=== PATIENT | male | born 1985 | race Caucasian/White ===

== ENCOUNTER 2019-03-20 16:24 | Outpatient (CLI) | payer OTHER ==
--- NOTE | 2019-03-21 11:14 | Ultrasound Report ---
Reason: HYPERLIPIDEMIA Procedure Date: 03/20/2019 Accession Number: [id number] / [id number] Procedure: US - Carotid Doppler Complete CPT Code: Final Report FULL RESULT: EXAM: BILATERAL CAROTID AND VERTEBRAL ARTERY DUPLEX DOPPLER ULTRASOUND: EXAM DATE: 03/20/2019 05:22 PM CLINICAL HISTORY: Hyperlipidemia. COMPARISON: None. TECHNIQUE: Grayscale imaging, color Doppler, and duplex spectral Doppler were used to evaluate the carotid and vertebral arteries bilaterally. Static images were obtained. FINDINGS: Minimal bilateral soft and calcified plaque formation. Normal antegrade flow is present in bilateral vertebral arteries. VELOCITIES (cm/sec): Right CCA mid: PSV 94.4 cm/sec CCA dist: PSV 89 cm/sec ICA prox: PSV 78 cm/sec, EDV 37 cm/sec ICA mid: PSV 72 cm/sec, EDV 39 cm/sec ICA dist: PSV 83 cm/sec, EDV 35 cm/sec ECA: PSV 102 cm/sec Vert: PSV 42 cm/sec ICA/CCA: 0.9 Left CCA mid: PSV 91 cm/sec CCA dist: PSV 79 cm/sec ICA prox: PSV 87 cm/sec, EDV 32 cm/sec ICA mid: PSV 66.3 cm/sec, EDV 30 cm/sec ICA dist: PSV 56.4 cm/sec, EDV 32 cm/sec ECA: PSV 104 cm/sec Vert: PSV 62 cm/sec ICA/CCA: 1.0 ICA diameter stenosis: Right: <50% by velocity and <70% by NASCET criteria. Left: <50% by velocity and <70% by NASCET criteria. IMPRESSION: 1. Minimal bilateral soft and calcified plaque formation. 2. In the right carotid artery there are no elevated carotid artery velocities to suggest hemodynamically significant stenosis. 3. In the left carotid artery there are no elevated carotid artery velocities to suggest hemodynamically significant stenosis. 4. Normal antegrade flow is present in bilateral vertebral arteries. General Recommendations: Stenosis =50% ICA - Follow-up ultrasound 6-12 months Stenosis <50% ICA - High Risk Patient with plaque - Follow-up ultrasound 1-2 years Normal Study but High Risk Patient - Follow-up ultrasound 3-5 years Management recommendations and diagnostic criteria are based on current IAC endorsed standards in Carotid Artery Stenosis: Grayscale and Doppler Ultrasound Diagnosis. Validated velocity measurements with angiographic measurements and velocity criteria are extrapolated from diameter data as defined by the Society of Radiologists in Ultrasound Consensus Conference Radiology 2003; 229;340-346. RADIA
== END 2019-03-20 16:25 | disposition home or self-care (01) ==
LOC: DI 16:24
PROVIDERS: ATTEND Nurse Practitioner Family
DX: E78.5 Hyperlipidemia, unspecified (principal)
CPT/HCPCS: 93880

== ENCOUNTER 2023-03-17 14:29 | Outpatient (CLI) | payer OTHER ==
--- NOTE | 2023-03-17 15:49 | Sleep Patient Instructions ---
Sleep Center Visit Summary - Patient Visit Information Reason for Visit: Initial consult for evaluation of sleep disordered breathing and other sleep issues. - Patient Instructions Instructions Attached: Sleep Study Home Monitor Additional Instructions: You will be completing a sleep study, either an in-lab polysomnography (PSG) or home sleep study (HST). You will follow-up in the sleep care office after the sleep study is completed to hear the results and talk about therapy, if needed. You will be called by our office staff to schedule this appointment, but you may contact us with any questions. - Clinic Information Contact: [facility] [address] [place] [address] [email or web address] T: [phone]
--- NOTE | 2023-03-17 15:50 | SLEEP CARE CONSULTATION ---
Information from patient questionnaire entered by Teofilo Ríos. I have reviewed and concur with the information entered by Teofilo Ríos. This document represents the service I personally performed and the decisions made by me, Kiya Henderson ARNP. History of Present Illness Service Date and Time: 03/17/2023 1429 Reason for Visit: New patient Chief Complaint: reports: Insomnia, Snoring, Excessive daytime sleepiness, Fatigue, Frequent awakenings at night Date of Onset: 4.5YRS Usual bedtime: 2000 Time it takes to fall asleep: 1-2HRS Snores at night: Yes Observed to quit breathing while asleep: Yes Sleeps alone due to snoring: No Number of times waking at night: MULTIPLE, USUALLY DO TO NECK PAIN Reasons for waking at night: reports: Pain, Bathroom, Other (UNKNOWN). denies: Choking, Gasping for air Toss, Turn, or Twitch while sleeping: Yes Recalls having dreams: No Usually gets out of bed at: 0500 Feels refreshed in the morning: No Morning headache: Yes (2 times a week; hx of migraines, takes rizatriptan) Sleepy or fatigued during the day: Yes Ever fallen asleep while driving: No Takes day naps: No Prior sleep studies: Yes Additional HPI information: I had the pleasure of seeing CEHKO YUNG today regarding the possibility of him having a sleep disorder. His current complaints are excessive daytime sleepiness, fatigue, frequent night awakenings, insomnia and snoring. He says his tells him that he snores loudly and gag in his sleep. He has a hard time going to sleep and feels tired all day. He does not wake up feeling rested in the morning. He has a lot of neck pain that disturbs his sleep. He feels like he is up for hours trying to sleep most nights. He says he can't take naps and does not have a problem with drowsy driving. He says he has had a sleep study in the past when he was on amitriptyline at that time. The study was negative. He says his watch will wake him up a couple times a week telling him his heart rate was low. He thinks it might be positional because he has been trying different positions to sleep with some improvement of the heart rate alarms. - Parasomnia Symptoms Ever been unable to move upon waking from sleep: No Walks in sleep: No Talks in sleep: No Ever acted out dreams in sleep: No Ever felt weak in the knees when startled or emotional: No Bothered by creepy, crawly, restless sensations in legs: Yes (at night, increased after exercise; 2 times a week) Problems with memory or concentration: Yes (both; more concentration) Subjective Initial [place] Sleepiness Scale score: 0 (02/28/23) Past Medical History Past Medical History: reports: Depression, GERD, Other (LOW BACK PAIN, MIGRAINES ) Social History The patient's occupation is a ACTIVE DUTY. Patient is and lives in [place]. Have you smoked in the past 12 months: No Alcohol use: Yes Alcohol amount and frequency: 1-2 1 PER WEEK Caffeine use: Yes Caffeine amount and frequency: 1-2 CUPS DAILY Family History Family history of sleep disordered breathing: No Allergies and Home Medications Known drug allergies: No Drug allergies reviewed: Yes Home medication list reviewed: Yes (-zole for GERD, not sure of name) Allergy and home medication list: Home Medications Medication Instructions Recorded Confirmed Last Taken Type Excedrin Migraine See Rx Instructions .ROUTE .COMPLEX 03/17/23 Unknown History Ibuprofen Motrin See Rx Instructions .ROUTE .COMPLEX 03/17/23 03/17/23 Unknown History Rizatriptan Benzoate Rizatriptan See Rx Instructions .ROUTE .COMPLEX 03/17/23 03/17/23 Unknown History Review of Systems Weight gain over past 5 years: 20 Cardiovascular: reports: high blood pressure (BORDERLINE) Gastrointestinal: reports: heartburn, difficulty swallowing Neurological: reports: headaches Psychiatric: reports: depression Ear/Nose/Throat: reports: sinus problems, injury to nose, wisdom teeth removed. denies: tonsillectomy Immunologic: reports: sneezing Physical Exam Vital signs obtained and entered by: TEOFILO Meade MA Blood Pressure: 120/76 (LEFT ARM) Cuff size: regular Heart Rate: 72 O2 Saturation: 98 Height: 5 ft 7.5 in Weight: 172 lb 3.2 oz Body Mass Index: 26.5 BMI Classification: Overweight Neck circumference: 16 Mouth and throat: narrow oropharynx Soft palate: long Hard palate: normal Uvula: normal Uvula visualization: 25% Mallampati Class III Tongue: enlarged in size with teeth [place] on lateral edges Tonsils: 2+ Neck: normal w/o lymphadenopathy or thyromegaly Heart: regular rate and rhythm Lungs: clear bilaterally Impression and Plan 1. Suspected Obstructive Sleep Apnea-Hypopnea Syndrome, as suggested by a history of loud and irregular snoring, observed cessation of breath while asleep, morning headache, frequent awakening during the night, unrefreshed sleep, cognitive impairment, and excessive daytime sleepiness. Narrow oropharynx and obesity are common predisposing factors for obstructive sleep apnea-hypopnea syndrome. I recommend proceeding to polysomnography to confirm the diagnosis and to assess severity. If the patient has significant sleep disordered breathing, a manual CPAP titration study will also be performed to find the optimal treatment pressure. I informed the patient of what the sleep studies involve and after some discussion, obtained agreement to proceed. The pathophysiology of obstructive sleep apnea-hypopnea syndrome was discussed with the patient and health risks of cardiovascular and cerebrovascular disease if not treated. Risks of drowsy driving discussed in detail and patient advised to avoid long distance driving and to gum puller at the first sign of drowsiness. Patient agreed to plan. * Schedule polysomnography +- manual CPAP titration study and return in 1-2 weeks after the study to discuss result and initiate therapy. * Avoid long distance driving or driving when feeling sleepy. * Avoid alcohol, sedative and muscle relaxant around bedtime. * Attempt to lose weight. * Review instructions provided by trained office staff on how to prepare for the sleep study. * Return for follow-up after sleep study completed. Counseling Topics: Weight loss health impact Visit Type: In Office Time Spent with Patient (minutes): 30 Provider Statement: I spent 100% of the Face to Face Visit with the patient with greater than 50% spent counseling the patient and coordination of care.
[2023-03-17 15:55] VITALS: BP 120/76; O2SAT 98
== END 2023-03-17 14:30 | disposition home or self-care (01) ==
LOC: SC 14:29
PROVIDERS: ATTEND Nurse Practitioner Family
DX: R06.83 Snoring (principal); R06.81 Apnea, not elsewhere classified; R41.9 Unspecified symptoms and signs involving cognitive functions and awareness; G47.8 Other sleep disorders; R41.89 Other symptoms and signs involving cognitive functions and awareness; G47.10 Hypersomnia, unspecified; E66.3 Overweight; Z68.26 Body mass index [BMI] 26.0-26.9, adult
CPT/HCPCS: 99203; 99212

== ENCOUNTER 2023-04-21 08:43 | Outpatient (CLI) | payer OTHER | END 2023-04-21 08:44 | disposition home or self-care (01) | LOC: SC 08:43 | PROVIDERS: ATTEND Nurse Practitioner Family | DX: G47.33 Obstructive sleep apnea (adult) (pediatric) (principal); R09.02 Hypoxemia | CPT/HCPCS: 95806 ==

== ENCOUNTER 2023-04-28 08:59 | Outpatient (CLI) | payer OTHER ==
--- NOTE | 2023-04-28 09:34 | Sleep Patient Instructions ---
Sleep Center Visit Summary - Patient Visit Information Reason for Visit: Sleep study follow-up - Patient Instructions Instructions Attached: CPAP Additional Instructions: You are being started on CPAP therapy with pressure setting at 4-15 cmH2O. You will need to call the sleep care office to set up your follow up once you have your APAP machine and we will schedule a visit to check compliance and response to therapy at that time. You may call the office with any concerns about pressure feeling too low or too much for adjustment, if needed. You should contact DME supplier for any questions or concerns about mask or equipment. Please call office to schedule a follow up appointment in the sleep care office one month after obtaining new device. - Clinic Information Contact: [facility] [address] [place] [address] [email or web address] T: [phone]
--- NOTE | 2023-04-28 09:38 | SLEEP CARE CONSULTATION ---
Information from patient questionnaire entered by Kamila Ríos. I have reviewed and concur with the information entered by Kamila Ríos. This document represents the service I personally performed and the decisions made by me, Kiya Henderson ARNP. History of Present Illness Service Date and Time: 04/28/2023 0859 Initial [place] Sleepiness Scale score: 0 (02/28/23) Current [place] Sleepiness Scale score: 0 Additional HPI information: CHEKO YUNG returns for follow up and results of the recently performed home sleep study. The sleep study showed mild obstructive sleep apnea with an average AHI of 7.7 and destiny oxygen saturation of 93%. I explained the pathophysiology behind obstructive sleep apnea. We then spent quite a bit of time discussing different treatment options. For mild obstructive sleep apnea, surgery and oral appliance are alternatives to nasal CPAP therapy but in moderate or severe cases, nasal CPAP is the most effective and reliable treatment. Because apnea is primarily in supine position, then positional management therapy could be effective. Methods discussed such as positioning with pillows, using a T-shirt with tennis balls in the back or commercial products that have a pillow format on back to prevent supine sleep. I reviewed the impact of weight changes on sleep apnea and strongly recommended losing weight. After some discussion, the patient opted to go with the nasal CPAP therapy. Nasal autoCPAP set at 4-15 cmH20 will be ordered with rationale explained. A manual titration study will be ordered if unable to find optimal pressure with office adjustments. I explained how CPAP machine works and what to expect when using the machine. Using CPAP every night in order to get used to it was emphasized. Patient advised to put CPAP mask on before getting into bed so as not to fall asleep without CPAP. To assist acclimation to CPAP use, it could also be used for a short time during day while reading or watching TV. The patient was instructed to call the CPAP supplier to discuss any mechanical problem that may occur. If the mask given is uncomfortable or is difficult to keep on through the night even with adjustment, contact the CPAP supplier as many will replace with another mask style if notified before 30 days. If snoring or perceives is not getting enough air or too much air from the machine, notify this office. Patient counseled not drink alcohol less than 4 hours be fore bedtime as it can increase snoring and apnea. Patient was cautioned about risks of drowsy driving until sleepiness symptoms resolve. Patient denies drowsy driving. Sleep Study - Results Type of Sleep Study: Home sleep study (COMPLETED 04/20/23) Prior sleep studies: Yes Polysomnography/Home Sleep Study results: Physician Impression: The quality of the study is good. The length of the study is adequate (> 240 minutes). Please also see the tabulated and graphic data. 1. Obstructive Sleep Apnea-Hypopnea (ICD-10 G47.33), mild, with an AHI of 7.7/hr and dsetiny SaO2 of 78%. During the study, the patient had 7 apneas (7 obstructive, 0 central, 0 mixed) and 54 hypopneas. The longest episode lasted 117.5 seconds. The patient slept mostly supine (supine AHI was 8.7 and nonsupine, 2.42). 2. Hypoxemia (ICD-10 R09.02), moderate, with the lowest oxygen saturation of 78 % and 13.3 minutes with SaO2 under 90%. Baseline oxygen saturation was normal (Average oxygen saturation was 93%). Allergies and Home Medications Known drug allergies: No Drug allergies reviewed: Yes Home medication list reviewed: Yes (Duloxetine 20 mg daily for low back pain) Allergy and home medication list: Allergies No Known Drug Allergies Allergy (Verified 04/26/23 08:32) Review of Systems Review of systems same as previous: Yes Physical Exam Vital signs obtained and entered by: ANA ROMEO Blood Pressure: 138/91 Cuff size: regular (right arm) Heart Rate: 73 O2 Saturation: 97 Height: 5 ft 7.5 in Weight: 171 lb Body Mass Index: 26.4 BMI Classification: Overweight Impression and Plan 1. Obstructive Sleep Apnea-Hypopnea Syndrome, mild, with lowest oxygen saturation of 78%. Obviously this is the cause of the patients symptoms of unrefreshed sleep, and excessive daytime sleepiness. Positive pressure therapy could benefit depression, gastric reflux and migraines. As mentioned above, the patient will be started on nasal autoCPAP therapy with pressure set at 4-15 cmH2 O. A manual titration study will be completed if unable to find optimal treatment pressure with office adjustments. Compliance guidelines also reviewed. A copy of compliance guidelines will be given for reference at check out. Because the apnea is more severe supine, I instructed to avoid sleeping supine using pillow positioning until able to start CPAP use. 2. Hypoxemia, moderate, with a destiny oxygen saturation of 78% and 13.3 minutes spent under 90%. The baseline oxygen saturation was normal with an average oxygen saturation of 93%. 3. [Obesity][Overweight], unspecified. Currently patients BMI is [26.4]. Obesity increases the risk of apnea, CPAP pressure requirements and overall health risks especially cardiovascular and diabetes. Thus patient is advised to[ continue to try to] lose weight. * Nasal auto CPAP therapy, pressure at 4-15 cm H2O. * Attempt to lose weight. * Avoid alcohol consumption near bedtime. * Avoid supine sleep until using CPAP. * The patient is again cautioned about driving until sleepiness completely resolves. * Return one month after CPAP obtained. I will assess response to therapy and compliance at that time. Counseling Topics: Weight loss health impact Prescriptions: Auto CPAP Follow up with Sleep Care in: other (compliance visit) Visit Type: In Office Time Spent with Patient (minutes): 23 Provider Statement: I spent 100% of the Face to Face Visit with the patient with greater than 50% spent counseling the patient and coordination of care.
[2023-04-28 09:45] VITALS: BP 138/91; O2SAT 97
== END 2023-04-28 09:00 | disposition home or self-care (01) ==
LOC: SC 08:59
PROVIDERS: ATTEND Nurse Practitioner Family
DX: G47.33 Obstructive sleep apnea (adult) (pediatric) (principal); R09.02 Hypoxemia; E66.3 Overweight; Z68.26 Body mass index [BMI] 26.0-26.9, adult
CPT/HCPCS: 99212; 99213

== ENCOUNTER 2023-08-11 12:56 | Outpatient (CLI) | payer OTHER ==
--- NOTE | 2023-08-11 13:28 | Sleep Patient Instructions ---
Sleep Center Visit Summary - Patient Visit Information Reason for Visit: First compliance follow-up - Patient Instructions Additional Instructions: You were here for follow up of CPAP therapy. You will be continued on CPAP therapy with pressure at 5-8 cmH2O. Please let us know if the pressure change is uncomfortable and we can make further adjustments of the pressure. You should follow up with sleep care in 1-2 months. You may contact us sooner for any questions or concerns. - Clinic Information Contact: [facility] [address] [place] [address] [email or web address] T: [phone]
[2023-08-11 13:32] VITALS: BP 137/86; O2SAT 97
--- NOTE | 2023-08-11 13:32 | SLEEP CARE CONSULTATION ---
Information from patient questionnaire entered by Teofilo Ríos. I have reviewed and concur with the information entered by Teofilo Ríos. This document represents the service I personally performed and the decisions made by , Kiya Henderson ARNP. History of Present Illness Service Date and Time: 08/11/2023 125 Previous diagnosis: Mild, Obstructive Sleep Apnea-Hypopnea Syndrome AHI: 7.7 (04/20/23) Reason for follow up: first compliance Equipment type: CPAP (RESMED Airsense 11, S/U 07/05/23) Equipment obtained from: Other ([facility]; getting supplies) Mask style: Nasal pillows Backup mask available: No Last cushion change: 1 month or so Prior sleep studies: Yes Type of Sleep Study: Home sleep study (COMPLETED 04/20/23) HPI additional information: CHEKO YUNG was diagnosed to have mild, AHI 7.7, obstructive sleep apnea-hypopnea syndrome and returned today for CPAP therapy first compliance follow-up. Sleep Study - Results Type of Sleep Study: Home sleep study (COMPLETED 04/20/23) Prior sleep studies: Yes CPAP Compliance Data - Data Reviewed with Patient Average duration of nightly device use: 5 HRS 23 MINS Compliance rate %: 90 (07/05/23-08/03/23; 28/30 days used) Current pressure setting (cmH2O): 4-15 (median 5, avg 6.7, max 7.7) Average residual AHI: 0.5 Central apnea: 0.1 Obstructive apnea: 0.2 Hypopnea: 0.2 Average large leak: 0 L/min Subjective Missed days of use due to: reports: travel Patient concerns: denies: aerophagia, mask discomfort, air blowing in eyes, mask leak noise, condensation in mask/hose, nasal congestion, dry mouth, nose, throat, epistaxis Observed to snore while using device: No Current pressure setting perceived as: comfortable On therapy, patient: reports: sleeping better, awakening more refreshed, being more awake and alert during the day, more rested overall. denies: drowsiness while driving Initial [place] Sleepiness Scale score: 0 (02/28/23) Current [place] Sleepiness Scale score: 3 (08/11/23) Allergies and Home Medications Known drug allergies: No Drug allergies reviewed: Yes Home medication list reviewed: Yes (see updated EMR list) Allergy and home medication list: Allergies No Known Drug Allergies Allergy (Verified 08/09/23 10:13) Review of Systems Review of systems same as previous: Yes (NO CHANGE) Physical Exam Vital signs obtained and entered by: TEOFILO Meade MA Blood Pressure: 137/86 (LEFT ARM) Cuff size: regular Heart Rate: 82 O2 Saturation: 97 Height: 5 ft 7.5 in Weight: 172 lb 6.4 oz Body Mass Index: 26.6 BMI Classification: Overweight Impression and Plan 1. Obstructive Sleep Apnea-Hypopnea Syndrome, mild, with good treatment compliance and good apnea control. On CPAP therapy, the patient has better sleep quality and is more rested overall. He says he "loves" the CPAP. He has adjusted to wearing it and feels good when using the CPAP with sleep. He has not had any issues with the mask or pressures. The patients pressure will be changed to autoCPAP 5-8 cmH20 to reflect pressure being used. Patient advised to contact me if pressure change is uncomfortable so that it can be adjusted. Goals for apnea control discussed. Patient's apnea severity and rationale for treatment to reduce apnea, improve sleep quality and reduce cardiovascular and cerebrovascular events was reviewed. I also reviewed the benefit of consistent device use of CPAP for gastric reflux, depression, migraines. 2. Overweight, unspecified. Currently patients BMI is 26.6. Obesity increases the risk of apnea, CPAP pressure requirements and overall health risks especially cardiovascular and diabetes. Thus patient is advised to maintain a healthy weight. * Change auto CPAP pressure to 5-8 cmH2O * Notify me if snoring with mask or feeling that the pressure is too much or too little * Maintain a healthy weight * Call this office if any problems using CPAP * Return for follow up in 1-2 months, or sooner if concerns arise Adjust device pressure to (cmH2O): 5-8 Counseling Topics: Spare mask, Weight control Follow up with Sleep Care in: 1-2 months Visit Type: In Office Time Spent with Patient (minutes): 14 Provider Statement: I spent 100% of the Face to Face Visit with the patient with greater than 50% spent counseling the patient and coordination of care.
== END 2023-08-11 12:57 | disposition home or self-care (01) ==
LOC: SC 12:56
PROVIDERS: ATTEND Nurse Practitioner Family
DX: G47.33 Obstructive sleep apnea (adult) (pediatric) (principal); E66.3 Overweight; Z68.26 Body mass index [BMI] 26.0-26.9, adult
CPT/HCPCS: 99212

== ENCOUNTER 2023-09-14 10:50 | Outpatient (CLI) | payer OTHER ==
--- NOTE | 2023-09-14 11:22 | Sleep Patient Instructions ---
Sleep Center Visit Summary - Patient Visit Information Reason for Visit: 1 month follow-up after pressure change - Patient Instructions Additional Instructions: You were here for follow up of CPAP therapy. You will be continued on CPAP therapy with pressure at 5-8 cmH2O. You should follow up with sleep care in 3 months. You may contact us sooner for any questions or concerns. - Clinic Information Contact: [facility] [address] [place] [id number] [email or web address] T: [phone]
--- NOTE | 2023-09-14 11:25 | SLEEP CARE CONSULTATION ---
Information from patient questionnaire entered by Teofilo Ríos. I have reviewed and concur with the information entered by Teofilo Ríos. This document represents the service I personally performed and the decisions made by , Kiya Henderson ARNP. History of Present Illness Service Date and Time: 09/14/2023 1050 Previous diagnosis: Mild, Obstructive Sleep Apnea-Hypopnea Syndrome AHI: 7.7 (on 04/20/23) Reason for follow up: one month (F/U) Equipment type: CPAP (RESMED Airsense 11, S/U 07/05/23) Equipment obtained from: Other ([facility]; getting supplies) Mask style: Nasal pillows Backup mask available: No (will keep old mask when replaced) Last cushion change: 2.5-3 months Prior sleep studies: Yes Type of Sleep Study: Home sleep study (COMPLETED 04/20/23) HPI additional information: CHEKO YUNG was diagnosed to have mild, AHI 7.7, obstructive sleep apnea-hypopnea syndrome and returned today for CPAP therapy one month with pressure change follow-up. Sleep Study - Results Type of Sleep Study: Home sleep study (COMPLETED 04/20/23) Prior sleep studies: Yes CPAP Compliance Data - Data Reviewed with Patient Average duration of nightly device use: 6 HRS 4 MINS Compliance rate %: 77 (08/09/23-09/07/23; 30 days used) Current pressure setting (cmH2O): 5-8 Average residual AHI: 1.5 Central apnea: 0.4 Obstructive apnea: 0.9 Average large leak: 0.1 L/min Subjective Missed days of use due to: reports: travel Patient concerns: denies: aerophagia, mask discomfort, air blowing in eyes, mask leak noise, condensation in mask/hose, nasal congestion, dry mouth, nose, throat, epistaxis Observed to snore while using device: No Current pressure setting perceived as: comfortable On therapy, patient: reports: sleeping better, awakening more refreshed, being more awake and alert during the day, more rested overall. denies: drowsiness while driving Initial [place] Sleepiness Scale score: 0 (02/28/23) Current [place] Sleepiness Scale score: 1 (09/14/23) Allergies and Home Medications Known drug allergies: No Drug allergies reviewed: Yes Home medication list reviewed: Yes (no changes) Allergy and home medication list: Allergies No Known Drug Allergies Allergy (Verified 09/08/23 11:35) Review of Systems Review of systems same as previous: Yes (NO CHANGE) Physical Exam Vital signs obtained and entered by: TEOFILO Meade MA Blood Pressure: 133/87 (LEFT ARM) Cuff size: regular Heart Rate: 85 O2 Saturation: 98 Height: 5 ft 7.5 in Weight: 174 lb Body Mass Index: 26.8 BMI Classification: Overweight Impression and Plan 1. Obstructive Sleep Apnea-Hypopnea Syndrome, mild, with good treatment compliance and good apnea control. On CPAP therapy, the patient has better sleep quality and is more rested overall. He says he has been able to use the CPAP more consistently and is very satisfied with the improvement of his sleep. He has significant improvement of his sleep apnea. He has not complaints or issues with CPAP use. Patient's apnea severity and rationale for treatment to reduce apnea, improve sleep quality and reduce cardiovascular and cerebrovascular events was reviewed. I also reviewed the benefit of consistent device use of CPAP for gastric reflux, depression, migraines. 2. Overweight, unspecified. Currently patients BMI is 26.8. Obesity increases the risk of apnea, CPAP pressure requirements and overall health risks especially cardiovascular and diabetes. Thus patient is advised to maintain a healthy weight. * Continue auto CPAP pressure at 5-8 cmH2O * Notify me if snoring with mask or feeling that the pressure is too much or too little * Maintain a healthy weight * Call this office if any problems using CPAP * Return for follow up in 3 months, or sooner if concerns arise Counseling Topics: Spare mask, Weight loss health impact Follow up with Sleep Care in: 3 months Visit Type: In Office Time Spent with Patient (minutes): 13 Provider Statement: I spent 100% of the Face to Face Visit with the patient with greater than 50% spent counseling the patient and coordination of care.
[2023-09-14 11:27] VITALS: BP 133/87; O2SAT 98
== END 2023-09-14 10:51 | disposition home or self-care (01) ==
LOC: SC 10:50
PROVIDERS: ATTEND Nurse Practitioner Family
DX: G47.33 Obstructive sleep apnea (adult) (pediatric) (principal); E66.3 Overweight; Z68.26 Body mass index [BMI] 26.0-26.9, adult
CPT/HCPCS: 99212